=== PATIENT | male | born 1955 | race Caucasian/White ===

== ENCOUNTER → 2020-12-29 11:28 | Outpatient (CLI) | payer OTHER, SELFPAY ==
--- NOTE | ~2020-12-29 | XR_ITS ---
EXAMINATION: XR hand LT min 3V, XR hand RT min 3V DATE: 12/29/2020 11:42 INDICATION: Left finger pain and mass at the right fourth proximal interphalangeal joint. TECHNIQUE: 1. Posteroanterior, oblique and lateral views of the left hand were obtained. 2. Posteroanterior, oblique and lateral views of the right hand were obtained. COMPARISON: None. FINDINGS: Normal bone alignment at both hands. No fracture. Osteoarthritis characterized by nonuniform joint sp jay jay and/or small marginal osteophytes, moderate severity at the left first carpal metacarpal joint an d mild at the at the right first carpometacarpal and right first interphalangeal joints. Remaining marlen int spaces are relatively preserved. No erosions. Soft tissues are unremarkable. IMPRESSION: 1. Polyarticular osteoarthritis, moderate at the left first carpometacarpal joint and mild at the rig ht first carpometacarpal and interphalangeal joints. Reviewed, dictated and finalized at location B. IMPRESSION: 1. Polyarticular osteoarthritis, moderate at the left first carpometacarpal haseeb nt and mild at the right first carpometacarpal and interphalangeal joints.
== END ==
PROVIDERS: PCP Family Medicine; Visit Provider Family Medicine
DX: M25.841 Other specified joint disorders, right hand (principal); M19.042 Primary osteoarthritis, left hand
CPT/HCPCS: 73130

== ENCOUNTER 2021-02-08 20:28 | Emergency (ER) | payer OTHER, SELFPAY ==
--- NOTE | ~2021-02-08 | XR_ITS ---
EXAMINATION: XR chest 2V DATE: 02/08/2021 21:34 INDICATION: Shortness of breath, chills and cough. TECHNIQUE: PA and lateral views of the chest were obtained. COMPARISON: Chest radiograph dated 06/25/2010 FINDINGS: The lungs are clear with no focal airspace opacities, pulmonary edema, pleural effusion or pneumothor ax. The cardiomediastinal silhouette is normal. Several old left rib fractures an old healed left sca pular fracture. IMPRESSION: 1. No acute cardiopulmonary disease. Reviewed, dictated and finalized at location A.
[2021-02-08 21:06] VITALS: BP 170/90; PULSE 88; RESP 16; TEMP 36.4; O2SAT 97
--- NOTE | 2021-02-08 21:10 | ECG_ITS ---
Measurements Intervals [place] Rate: 87 P: 62 ME: 184 QRS: -27 QRSD: 88 T: 26 QT: 356 QTc: 430 Interpretive Statements SINUS RHYTHM NORMAL ECG Electronically Signed On 02-09-2021 7:11:49 CDT by Jameel Ellison D.O.
[2021-02-08 21:26] LABS: Eosinophils Percent Auto 0.3 % (0-4.4); Hematocrit 41.4 % (42.0-52.0); Hemoglobin 14.3 g/dL (14.0-18.0); Immature Granulocyte Absolute 0.02 K/mm3 (0.00-0.031); Immature Granulocyte Percent A 0.5 % (0-0.5); Lymphocytes Absolute Auto 0.61 K/mm3 (0.9-3.2); Lymphocytes Percent Auto 16.3 % (18.3-44.2); Mean Corpuscular HGB Conc 34.5 g/dl (32-36); Mean Corpuscular Hemoglobin 32.6 pg (26-34); Mean Corpuscular Volume 94.5 fl (80-100); Mean Platelet Volume 9.3 fl (7.4-10.4); Monocytes Absolute Auto 0.4 K/mm3 (0.1-0.6); Monocytes Percent Auto 9.9 % (2.6-8.5); Neutrophils Absolute Auto 2.7 K/mm3 (1.3-6.7); Platelet Count Result 203 k/mm3 (150-375); Red Blood Count 4.38 M/mm3 (4.6-6.20); Red Cell Distribution Width 12.1 % (11.5-14.5); White Blood Count 3.7 K/mm3 (4.5-10.0)
[2021-02-08 21:43] LABS: Alanine Aminotransferase 129 U/L (4-50); Alkaline Phosphatase 124 U/L (38-126); Anion Gap 5 mmol/L (8-16); Aspartate Amino Transferase 118 U/L (17-59); Bilirubin,Total 0.4 mg/dL (0.2-1.3); Blood Urea Nitrogen 10 mg/dL (9-20); Calcium 8.5 mg/dL (8.4-10.2); Carbon Dioxide 34 mmol/L (22-30); Chloride 99 mmol/L (98-107); Estimated CRCL calculation 90 ml/min; Estimated Glomerular Filt Rate > 60; Glucose 117 mg/dL (75-110); Potassium 4.1 mmol/L (3.4-5.0); Sodium 138 mmol/L (137-145)
--- NOTE | 2021-02-08 23:34 | PC.NURSE ---
Patient left-was very agitated--stated call me if you find anything . Attempted to talk to patient about staying without success
[2021-02-09 00:23] LABS: Add Urine Microscopic? YES; Appearance Urine Cloudy (Clear); Bacteria Urine Trace /hpf; Bilirubin Urine Negative (Negative); Blood Urine Negative (Negative); Color Urine Yellow (Yellow); Glucose Urine UA Negative (Negative); Ketones Urine Negative (Negative); Leukocyte Esterase Ur Negative LEU/UL (Negative); Mucus Urine Rare /lpf; Nitrate Urine Negative (Negative); Protein Urine 1+ mg/dL (Negative); RBC Urine 0-2 /hpf (0-2); Specific Grav Ur 1.012 (1.001-1.035); Squamous Epithelial Cell Urine Rare /hpf (Few); Urobilinogen Urine Negative mg/dL (<2.0); WBC Urine 0-3 /hpf
== END 2021-02-09 00:21 | disposition left against medical advice (07) ==
PROVIDERS: Emergency Provider Emergency Medicine; PCP Family Medicine
DX: R05 Cough (principal)
CPT/HCPCS: 36415; 71046; 80053; 81001; 85025; 93005; 99199

== ENCOUNTER → 2021-02-22 15:11 | Outpatient (CLI) | payer OTHER, SELFPAY ==
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
== END ==
PROVIDERS: PCP Family Medicine; Visit Provider Nurse Practitioner Family
DX: I67.2 Cerebral atherosclerosis (principal); F44.89 Other dissociative and conversion disorders
CPT/HCPCS: 70450

== ENCOUNTER → 2021-02-23 10:49 | Outpatient (CLI) | payer OTHER, SELFPAY ==
--- NOTE | ~2021-02-23 | US_ITS ---
EXAMINATION: US right upper quadrant DATE: 02/23/2021 11:18 INDICATION: Abnormal liver function tests. TECHNIQUE: Multiple grayscale and Doppler ultrasound images of the abdomen were obtained. COMPARISON: None FINDINGS: Abdominal aorta is normal in caliber. The visualized portions of the head and body of the p ancreas are normal. The liver is normal without focal lesion. No liver surface nodularity. There is n ormal flow in main portal vein. The gallbladder is normal in size. No gallstones or gallbladder wall thickening. There is no sonographic Hernandez sign. The common duct is normal and measures 4 mm. Right k idney is normal in size. IMPRESSION: 1. No etiology for abnormal liver function tests. Reviewed, dictated and finalized at location B.
== END ==
PROVIDERS: PCP Nurse Practitioner Family; Visit Provider Nurse Practitioner Family
DX: R74.8 Abnormal levels of other serum enzymes (principal)
CPT/HCPCS: 76705

== ENCOUNTER → 2021-03-02 11:15 | Outpatient (CLI) | payer OTHER, SELFPAY ==
--- NOTE | ~2021-03-02 | US_ITS ---
EXAMINATION: US carotid duplex BI EXAM DATE: 03/02/2021 11:45 INDICATION: Carotid artery stenosis. TECHNIQUE: Grayscale, color and pulsed Doppler images of the cervical carotid arteries were obtained . The degree of vessel stenosis is placed in one of the following categories: normal, <50% stenosis, 50-69% stenosis, >=70% stenosis but less than near-occlusion, near-occlusion, or occlusion. Note that percent stenosis relative to normal distal artery lumen diameter is indirectly measured from velocit y measurements as described by Jimenez, et al. Radiology 2003; 229:340-346. There is no prior study fo r comparison. FINDINGS: RIGHT SIDE: Right common carotid artery peak systolic velocity (PSV in cm/s): 90 Right bulb/internal carotid artery peak systolic velocity (PSV in cm/s): 100 Right internal carotid artery end diastolic velocity (EDV in cm/s): 22 Right ICA/CCA peak systolic ratio: 1.1 Right external carotid artery peak systolic velocity (PSV in cm/s): 153 Right vertebral artery antegrade flow: yes There is minimal carotid bulb plaque. Velocity and Doppler waveforms in the common and internal carotid arteries is normal. LEFT SIDE: Left common carotid artery peak systolic velocity (PSV in cm/s): 96 Left bulb/internal carotid artery peak systolic velocity (PSV in cm/s): 84 Left internal carotid artery end diastolic velocity (EDV in cm/s): 25 Left ICA/CCA peak systolic ratio: 0.9 Left external carotid artery peak systolic velocity (PSV in cm/s): 69 Left vertebral artery antegrade flow: yes There is minimal carotid bulb plaque. Velocity and Doppler waveforms in the common and internal carotid arteries is normal. IMPRESSION: 1. Less than 50 percent stenosis in the right internal carotid artery. 2. Less than 50 percent stenosis in the left internal carotid artery. > Reviewed, dictated and finalized at location A.
== END ==
PROVIDERS: PCP Family Medicine; Visit Provider Family Medicine
DX: I65.23 Occlusion and stenosis of bilateral carotid arteries (principal)
CPT/HCPCS: 93880

== ENCOUNTER 2021-10-24 06:41 | Outpatient (CLI) | payer OTHER, SELFPAY ==
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
--- NOTE | 2021-10-26 12:04 | WPDHOLTEREM ---
Holter/Event Monitor Holter/Event Monitor Date of procedure: 10/24/21 Holter/Event Procedure: 24 Hr Holter Monitor Indications: Amnesia/Memory disorder Conclusion: 1. 24 hour holter monitor on 10/24/21. 2. Underlying rhythm is sinus rhythm. HR range 46-114 bpm; average HR 65 bpm. 3. There are 20 premature supraventricular complexes and 1 supraventricular couplet. No supraventricular tachycardia. 4. There are 4 premature ventricular complexes. No ventricular tachycardia. 5. No sinoatrial or atrioventricular blocks. No significant pauses greater than 2 seconds. 6. Patient reports fast heart rate which demonstrate sinus rhythm at 61 bpm.
== END 2021-10-24 06:42 | disposition home or self-care (01) ==
LOC: ANHNEURO 06:43
PROVIDERS: PCP Family Medicine; Visit Provider Psychiatry & Neurology Neurology
DX: R41.3 Other amnesia (principal); G40.209 Localization-related (focal) (partial) symptomatic epilepsy and epileptic syndromes with complex partial seizures, not intractable, without status epilepticus
CPT/HCPCS: 93225; 93226; 95816

== ENCOUNTER → 2021-11-13 08:19 | Outpatient (CLI) | payer OTHER, SELFPAY ==
--- NOTE | ~2021-11-13 | MR_ITS ---
EXAMINATION: MR brain/brain stem wo/w con DATE: 11/13/2021 09:13 INDICATION: Amnesia. Memory disorder. Complex partial seizures. TECHNIQUE: Magnetic resonance imaging (MRI) of the brain and brainstem was performed without and with 15 mL MultiHance intravenous contrast. Sequences included sagittal and axial T1-weighted FSE, axial diffusion-weighted FS EPI, axial T2*-weighted GRE, axial T2-weighted FLAIR Propeller, and axial T2-we ighted Propeller. Postcontrast sequences included axial and coronal T1-weighted FSE. Apparent diffusi on coefficient (ADC) maps were created. COMPARISON: Head CT 02/22/2021 FINDINGS: There is chronic encephalomalacia with old blood products in anterior right temporal lobe. There are areas of chronic encephalomalacia in lateral right frontal lobe and inferior right frontal lobe. There are scattered areas of nonspecific increased T2-weighted signal intensity in the cerebral white matter. There is no acute ischemic infarct or abnormal mass lesion. The ventricles are normal in size. There is mucosal thickening in the paranasal sinuses. The orbits are normal. The mastoid air cells are normal. IMPRESSION: 1. Chronic encephalomalacia involving right frontal lobe and right temporal lobe. 2. Mild nonspecific cerebral white matter disease, which likely represents chronic small vessel ische trini disease. Reviewed, dictated and finalized at location A. LINE EXECUTIVE IMPRESSION: 1. Chronic encephalomalacia involving right frontal lobe and right temporal lob e. 2. Mild nonspecific cerebral white matter disease, which likely represents wide area network systems administrator elidia small vessel ischemic disease.
[2021-11-13 08:51] LABS: Estimated Glomerular Filt Rate > 60
== END ==
PROVIDERS: Visit Provider Psychiatry & Neurology Neurology
DX: R41.3 Other amnesia (principal); G40.209 Localization-related (focal) (partial) symptomatic epilepsy and epileptic syndromes with complex partial seizures, not intractable, without status epilepticus; G93.89 Other specified disorders of brain; R90.82 White matter disease, unspecified
CPT/HCPCS: 70553; A9577

== ENCOUNTER → 2022-09-21 08:13 | Outpatient (CLI) | payer OTHER, SELFPAY ==
--- NOTE | ~2022-09-21 | MR_ITS ---
EXAMINATION: MR cervical spine wo con DATE: 09/21/2022 08:52 INDICATION: Cervical spondylosis without myelopathy or radiculopathy. Neck pain. TECHNIQUE: Magnetic resonance imaging (MRI) of the cervical spine was performed without intravenous c ontrast. COMPARISON: Cervical spine MRI 11/14/2007 FINDINGS: There is 2 mm retrolisthesis of C3 on C4. Vertebral body heights are normal. There is sever siria decreased disc height at C3-C4, mildly decreased disc height at C4-C5, and severely decreased dis c height at C5-C6 and C6-C7. The spinal cord signal intensity is normal. The following disc levels ar e specifically discussed: C2-C3: There is a central extrusion. There is no uncovertebral joint osteoarthritis. There is moderat e right and mild left facet joint osteoarthritis. There is mild right neural foraminal stenosis. Ther e is mild central canal stenosis. C3-C4: The disc is bulging. There is severe bilateral uncovertebral joint osteoarthritis. There is mo derate bilateral facet joint osteoarthritis. There is moderate bilateral neural foraminal stenosis. T here is moderate central canal stenosis with ventral and dorsal indentation of the spinal cord. C4-C5: The disc is bulging. There is moderate bilateral uncovertebral joint osteoarthritis. There is moderate bilateral facet joint osteoarthritis. There is moderate right and mild left neural foraminal stenosis. There is moderate central canal stenosis with ventral and dorsal indentation of the spinal cord. C5-C6: The disc is bulging. There is severe bilateral uncovertebral joint osteoarthritis. There is mo derate right and severe left facet joint osteoarthritis. There is moderate bilateral neural foraminal stenosis. There is moderate central canal stenosis with ventral and dorsal indentation of the spinal cord. C6-C7: The disc is bulging. There is severe bilateral uncovertebral joint osteoarthritis. There is mo derate right and severe left facet joint osteoarthritis. There is mild right and moderate left neural foraminal stenosis. There is mild central canal stenosis with ventral indentation of the spinal cord . C7-T1: There is a central protrusion. There is no uncovertebral joint osteoarthritis. There is severe bilateral facet joint osteoarthritis. There is mild bilateral neural foraminal stenosis. There is mi ld central canal stenosis. IMPRESSION: 1. Severe cervical spondylosis, worsened from 11/14/2007. Reviewed, dictated and finalized at location A. TER
== END ==
PROVIDERS: Visit Provider Family Medicine
DX: M47.812 Spondylosis without myelopathy or radiculopathy, cervical region (principal)
CPT/HCPCS: 72141

== ENCOUNTER → 2023-03-02 09:45 | Outpatient (CLI) | payer OTHER, SELFPAY ==
--- NOTE | ~2023-03-02 | XR_ITS ---
EXAM: XR cervical spine 4-5V DATE: 03/02/2023 10:42 HISTORY: M48.02 - Spinal stenosis, cervical region . COMPARISON: MR cervical spine 09/21/2022. FINDINGS: Craniocervical association and atlantoaxial joint are aligned. No prevertebral soft tissue swelling. Vertebral body heights are maintained. 2 mm retrolisthesis at C3-4 that remains stable in flexion and extension. 1 mm retrolisthesis at C4-5 that reduces in flexion. Multilevel degenerative d isc disease, moderate at C3-4. Multilevel mild facet hypertrophy. IMPRESSION: Stable grade 1 anterolisthesis at C3-4. Minimal grade 1 dynamic listhesis at C4-5. Multil evel degenerative disc disease and facet arthropathy. Reviewed, dictated and finalized at location K. IMPRESSION: Stable grade 1 anterolisthesis at C3-4. Minimal grade 1 dynamic lis thesis at C4-5. Multilevel degenerative disc disease and facet arthropathy.
== END ==
PROVIDERS: PCP Family Medicine; Visit Provider Neurological Surgery
DX: M48.02 Spinal stenosis, cervical region (principal)
CPT/HCPCS: 72050

== ENCOUNTER 2024-10-15 14:09 | Outpatient (CLI) | payer OTHER, SELFPAY ==
--- NOTE | ~2024-10-15 | XR_ITS ---
XR cervical spine 4-5V Ordering provider: Han Javier, EARLY CHILDHOOD ASSISTANT History: . Neck Pain . Comparison: None. FINDINGS: VERTEBRAL BODIES: Normal height and alignment. No visible fracture or subluxation. The dens is intact . DISK SPACES: Narrowing of the disc C3-C4. Multilevel uncovertebral joint osteoarthritic changes. PARASPINOUS SOFT TISSUES: No prevertebral soft tissue swelling. IMPRESSION: No acute osseous abnormality cervical spine. Degenerative disc disease of the disc C3-C4. Reviewed, dictated and finalized at location A. R MACHINE
== END 2024-10-15 14:10 | disposition home or self-care (01) ==
PROVIDERS: PCP Registered Nurse; Visit Provider Registered Nurse
DX: M50.31 Other cervical disc degeneration, high cervical region (principal)
CPT/HCPCS: 72050

== ENCOUNTER 2024-12-02 12:28 | Outpatient (CLI) | payer OTHER, SELFPAY ==
--- NOTE | ~2024-12-02 | MR_ITS ---
EXAMINATION: MR cervical spine wo con DATE: 12/02/2024 13:14 INDICATION: Spinal stenosis, cervical region. TECHNIQUE: Magnetic resonance imaging (MRI) of the cervical spine was performed without intravenous c ontrast. COMPARISON: Cervical spine MRI 09/21/2022, radiographs 10/15/2024 FINDINGS: There is 4 degrees levocurvature of cervicothoracic spine. There is mild chronic anterior w edging of T1 vertebral body. There is severely decreased disc height at C3-C4, mildly decreased disc height at C4-C5, and moderately decreased disc height at C5-C6 and C6-C7. The spinal cord signal inte nsity is normal. The following disc levels are specifically discussed: C2-C3: There is a central protrusion. There is no uncovertebral joint osteoarthritis. There is mild b ilateral facet joint osteoarthritis. There is no neural foraminal stenosis. There is mild central can al stenosis. C3-C4: The disc is bulging. There is severe bilateral uncovertebral joint osteoarthritis. There is mi ld bilateral facet joint osteoarthritis. There is moderate bilateral neural foraminal stenosis. There is moderate central canal stenosis with ventral and dorsal indentation of the spinal cord. C4-C5: The disc is bulging. There is moderate bilateral uncovertebral joint osteoarthritis. There is moderate bilateral facet joint osteoarthritis. There is moderate right and mild left neural foraminal stenosis. There is moderate central canal stenosis with ventral and dorsal indentation of the spinal cord. C5-C6: The disc is bulging. There is severe bilateral uncovertebral joint osteoarthritis. There is mi ld right and moderate left facet joint osteoarthritis. There is severe bilateral neural foraminal katina nosis. There is mild central canal stenosis with ventral indentation of the spinal cord. C6-C7: The disc is bulging. There is moderate right and severe left uncovertebral joint osteoarthriti s. There is moderate bilateral facet joint osteoarthritis. There is mild right and moderate left neur al foraminal stenosis. There is mild central canal stenosis. C7-T1: The disc does not extend beyond the endplate margin. There is no uncovertebral joint osteoarth ritis. There is severe bilateral facet joint osteoarthritis. There is mild bilateral neural foraminal stenosis. There is no central canal stenosis. IMPRESSION: 1. Severe cervical spondylosis. Reviewed, dictated and finalized at location A. LE PLACER
== END 2024-12-02 12:29 | disposition home or self-care (01) ==
PROVIDERS: PCP Family Medicine; Visit Provider Nurse Practitioner Adult Health
DX: M47.812 Spondylosis without myelopathy or radiculopathy, cervical region (principal); M48.02 Spinal stenosis, cervical region
CPT/HCPCS: 72141

== ENCOUNTER 2025-09-23 11:21 | Outpatient (CLI) | payer OTHER, SELFPAY ==
--- NOTE | ~2025-09-23 | XR_ITS ---
EXAM/PROCEDURE: XR lumbar spine 2-3V HISTORY: Lbp COMPARISON: None available. TECHNIQUE: 2 view lumbar spine FINDINGS: 2 view lumbar spine series showing anterior fusion hardware at L5-S1 and degenerative changes involving disc spaces and posterior elements essentially throughout the lumbar spine, most severe from L3 through S1. Approximately 8 mm of anterolisthesis L5 on S1. No gross acute or aggressive bony or soft tissue process seen. Fine bone and soft tissue detail obscured by overlying stool and bowel gas. IMPRESSION: Patient status post anterior fusion of L5-S1 with approximately 8 mm anterolisthesis L5 on S1. Other findings as above. Consider correlation with lumbar spine MRI for persisting back pain refractory to conservative therapy. Reviewed, dictated and finalized at location A. CONTROL SPECIALIST IMPRESSION: Patient status post anterior fusion of L5-S1 with approximately 8 mm anterolist hesis L5 on S1. Other findings as above. Consider correlation with lumbar spine MRI for persisting back pain refractory to conservative therapy.
--- NOTE | ~2025-09-23 | XR_ITS ---
EXAM/PROCEDURE: XR sacrum coccyx min 2V HISTORY: Lbp COMPARISON: None available. TECHNIQUE: Sacrum FINDINGS: The sacrum appears normal other than mild osteoarthritic appearing degenerative changes in the SI joints right slightly worse than left. Anterior fusion hardware at L5-S1 noted. IMPRESSION: No acute findings. Consider correlation with MRI for optimal evaluation as clinically appropriate. Reviewed, dictated and finalized at location A. NT SERVICES ADMINISTRATOR IMPRESSION: No acute findings. Consider correlation with MRI for optimal evaluation as clin ically appropriate.
== END 2025-09-23 11:22 | disposition home or self-care (01) ==
LOC: MICIMG 11:23
PROVIDERS: PCP Family Medicine; Visit Provider Nurse Practitioner Family
DX: M54.32 Sciatica, left side (principal); M54.50 Low back pain, unspecified; Z98.1 Arthrodesis status
CPT/HCPCS: 72100; 72220